=== PATIENT | male | born 1990 | race Two or more races ===

== ENCOUNTER 2021-11-23 11:40 | Emergency (ER) | payer OTHER ==
[~2021-11-23] VITALS: Ht 160 cm; Wt 59.0 kg
[2021-11-23 13:00] VITALS: BP 151/91
== END 2021-11-23 13:08 | disposition home or self-care (01) ==
LOC: FSED 12:40
DX: R00.2 Palpitations (principal); R42 Dizziness and giddiness
CPT/HCPCS: 71046; 80053; 85025; 93005; 99283